=== PATIENT | male | born 1945 | race Two or more races ===

== ENCOUNTER 2018-05-13 13:00 | Emergency (ER) | payer OTHER ==
[~2018-05-13] VITALS: Ht 162.6 cm; Wt 64.0 kg
[2018-05-13 13:15] VITALS: BP 122/65
[2018-05-13 14:19] LABS: Basophils # (auto) 0.1 uL; Basophils % (auto) 0.9 % (0.0-2.0); Eosinophils # (auto) 0.1 uL; Eosinophils % (auto) 0.7 % (0.0-7.0); Hematocrit 44.7 % (41.0-53.0); Hemoglobin 15.3 g/dL (13.5-17.5); Lymphocytes % (auto) 21.8 % (10.0-50.0); Mean Corpuscular Hemoglobin 30.2 pg (28.0-32.0); Mean Corpuscular Hgb Conc. 34.3 g/dL (32.0-36.0); Mean Corpuscular Volume 88.3 fL (80.0-100.0); Monocytes # (auto) 0.5 uL; Monocytes % (auto) 5.7 % (0.0-12.0); Neutrophils # (auto) 6.6 uL; Neutrophils % (auto) 70.9 % (37.0-80.0); Nucleated Red Blood Cells % 0.1 %; Platelet Count (auto) 274 10^3/uL (140-450); Red Blood Cells 5.06 10^6/uL (4.5-5.90); Red Cell Distribution Width 12.7 % (11.8-14.3); White Blood Cell 9.3 10^3/uL (4.4-10.8)
[2018-05-13 14:32] LABS: Alanine Aminotransferase 29 U/L (16-61); Albumin 3.8 g/dL (3.4-5.0); Anion Gap 11 (5-15); Aspartate Aminotransferase 14 U/L (15-37); BUN/Creatinine Ratio 19.8; Blood Urea Nitrogen 23 mg/dL (7-18); Calcium 8.4 mg/dL (8.5-10.1); Carbon Dioxide 25 mmol/L (21-32); Chloride 102 mmol/L (98-107); GFR African American 80 mL/min; GFR Non-African American 66 mL/min; Glucose 282 mg/dL (74-106); Potassium 4.8 mmol/L (3.5-5.1); Sodium 138 mmol/L (136-145)
[2018-05-13 14:37] LABS: Alkaline Phosphatase 92 U/L (45-117); Bilirubin, Total 0.3 mg/dL (0.2-1.0); Total Protein 7.5 g/dL (6.4-8.2)
== END 2018-05-13 16:05 | disposition left against medical advice (07) ==
LOC: ER 13:04
DX: R42 Dizziness and giddiness (principal); I10 Essential (primary) hypertension; E11.9 Type 2 diabetes mellitus without complications; E78.5 Hyperlipidemia, unspecified
CPT/HCPCS: 36415; 71046; 80053; 84484; 85025; 93005

== ENCOUNTER 2019-05-15 16:26 | Emergency (ER) | payer OTHER ==
[~2019-05-15] VITALS: Ht 162.6 cm; Wt 65.3 kg
[2019-05-15] MEDS ORDERED: SODIUM CHLORIDE 0.9% 1,000 ML IVB ONE (16:50)
[2019-05-15] MEDS ORDERED: KETOROLAC TROMETH 15 mg/ml 1ML VL IV ONE (17:00)
[2019-05-15] MEDS ORDERED: ONDANSETRON HCL 4 MG/2 ML VIAL IV ONE (17:00)
[2019-05-15] MEDS ORDERED: MORPHINE SULFATE 4 MG/ML SYR/VIAL IV ONE (17:00)
[2019-05-15 17:12] LABS: Urine Bacteria NONE SEEN /hpf (None Seen); Urine Blood Negative /uL (Negative); Urine Mucus FEW (None Seen); Urine Specific Gravity 1.035 (1.001-1.035); Urine WBC 1 /hpf (0 - 3)
[2019-05-15 17:41] LABS: Basophils # (auto) 0.1 uL; Basophils % (auto) 1.1 % (0.0-2.0); Eosinophils # (auto) 0.2 uL; Eosinophils % (auto) 2.8 % (0.0-7.0); Hematocrit 38.7 % (41.0-53.0); Hemoglobin 13.3 g/dL (13.5-17.5); Lymphocytes # (auto) 1.9 uL; Lymphocytes % (auto) 23.8 % (10.0-50.0); Mean Corpuscular Hemoglobin 31.3 pg (28.0-32.0); Mean Corpuscular Hgb Conc. 34.2 g/dL (32.0-36.0); Mean Corpuscular Volume 91.4 fL (80.0-100.0); Monocytes # (auto) 0.7 uL; Neutrophils # (auto) 5.1 uL; Neutrophils % (auto) 63.3 % (37.0-80.0); Nucleated Red Blood Cells % 0.1 %; Platelet Count (auto) 246 10^3/uL (140-450); Red Blood Cells 4.24 10^6/uL (4.5-5.90); Red Cell Distribution Width 13.2 % (11.8-14.3)
[2019-05-15 17:54] LABS: Albumin 3.4 g/dL (3.4-5.0); Calcium 8.6 mg/dL (8.5-10.1); Potassium 4.6 mmol/L (3.5-5.1)
[2019-05-15 17:57] LABS: BUN/Creatinine Ratio 17.7; Bilirubin, Total 0.2 mg/dL (0.2-1.0); Total Protein 6.7 g/dL (6.4-8.2)
[2019-05-15 18:00] VITALS: BP 129/48
== END 2019-05-15 18:17 | disposition home or self-care (01) ==
LOC: ER 16:37
DX: N20.0 Calculus of kidney (principal); E11.9 Type 2 diabetes mellitus without complications; E78.5 Hyperlipidemia, unspecified; I10 Essential (primary) hypertension; F17.210 Nicotine dependence, cigarettes, uncomplicated
CPT/HCPCS: 36415; 74176; 80053; 81001; 85025; 94761; 96374; 96375; 99284; J1885; J2270; J2405; J7030

== ENCOUNTER 2019-07-02 14:29 | Emergency (ER) | payer OTHER ==
[~2019-07-02] VITALS: Ht 162.6 cm; Wt 65.3 kg
[2019-07-02 15:05] VITALS: BP 152/54
== END 2019-07-02 16:26 | disposition home or self-care (01) ==
LOC: ER 14:38
DX: S80.211A Abrasion, right knee, initial encounter (principal); E11.9 Type 2 diabetes mellitus without complications; E78.00 Pure hypercholesterolemia, unspecified; I10 Essential (primary) hypertension; F17.210 Nicotine dependence, cigarettes, uncomplicated; V89.2XXA Person injured in unspecified motor-vehicle accident, traffic, initial encounter; Y93.89 Activity, other specified; Y92.89 Other specified places as the place of occurrence of the external cause; Y99.8 Other external cause status

== ENCOUNTER 2021-09-21 16:42 | Inpatient (IN) | payer OTHER ==
[~2021-09-21] VITALS: Ht 162.6 cm; Wt 65.8 kg
[2021-09-21 19:11] LABS: Basophils # (auto) 0.1 10 ^3/uL (0-0.2); Basophils % (auto) 0.8 % (0.0-2.0); Eosinophils # (auto) 0.1 10 ^3/uL (0-0.8); Eosinophils % (auto) 0.9 % (0.0-7.0); Hematocrit 41.5 % (41.0-53.0); Hemoglobin 13.9 g/dL (13.5-17.5); Lymphocytes # (auto) 1.7 10 ^3/uL (0.4-5.4); Lymphocytes % (auto) 15.9 % (10.0-50.0); Mean Corpuscular Hemoglobin 30.7 pg (28.0-32.0); Mean Corpuscular Hgb Conc. 33.6 g/dL (32.0-36.0); Mean Corpuscular Volume 91.4 fL (80.0-100.0); Monocytes # (auto) 0.7 10 ^3/uL (0-1.3); Monocytes % (auto) 6.3 % (0.0-12.0); Neutrophils % (auto) 76.1 % (37.0-80.0); Nucleated Red Blood Cells % 0.1 %; Red Blood Cells 4.54 10^6/uL (4.5-5.90); White Blood Cell 10.6 10^3/uL (4.4-10.8)
[2021-09-21 19:22] LABS: Albumin 3.8 g/dL (3.4-5.0); BUN/Creatinine Ratio 14.4; Calcium 9.4 mg/dL (8.5-10.1); Potassium 4.2 mmol/L (3.5-5.1)
[2021-09-21 19:25] LABS: INR 1.06 (0.9-1.15); Partial Thromboplastin Time 28.6 sec (23.6-33.0)
[2021-09-21 19:30] LABS: Bilirubin, Total 0.2 mg/dL (0.2-1.0); Magnesium 1.8 mg/dL (1.6-2.6)
[2021-09-21] MEDS ORDERED: LORazepam 2MG/ML-1ML VIAL IV PRN (20:15)
[2021-09-21] MEDS ORDERED: LABETALOL HCL 5 MG/ML 4ML SYRINGE IV PRN (20:15)
[2021-09-21] MEDS ORDERED: ACETAMINOPHEN 650 mg PER 20.3 mL UD GT PRN (20:15)
[2021-09-21] MEDS ORDERED: CLOPIDOGREL BISULFATE 75 MG TAB PO ONE (20:15)
[2021-09-21 20:51] LABS: Cholesterol 138 mg/dL (< 200); HDL Cholesterol 39 mg/dL (40-59); LDL Cholesterol 76 mg/dL (< 100); Triglycerides 181 mg/dL (< 150)
[2021-09-22 00:11] LABS: Alcohol, Urine < 3.0 mg/dL (0-10); Amphetamine Screen, Urine NEGATIVE (NEGATIVE); Barbiturate Scree,Urine NEGATIVE (NEGATIVE); Benzodiazephine Screen, Urine NEGATIVE (NEGATIVE); Cannabinoid Screen, Urine NEGATIVE (NEGATIVE); Cocaine Screen, Urine NEGATIVE (NEGATIVE); Opiate Scree,Urine NEGATIVE (NEGATIVE); Phencyclidine Screen, Urine NEGATIVE (NEGATIVE)
[2021-09-22 00:49] LABS: Urine Bacteria NONE SEEN /hpf (None Seen); Urine Blood Negative /uL (Negative); Urine Specific Gravity 1.013 (1.001-1.035); Urine WBC <1 /hpf (0 - 3)
[2021-09-22] MEDS ORDERED: DEXTROSE (50%) 50ML SYRG IV PRN (02:00)
[2021-09-22] MEDS ORDERED: DOCUSATE SOD 100 MG CAP PO PRN (02:00)
[2021-09-22] MEDS ORDERED: NITROGLYCERIN 0.4 MG SL TAB SL PRN (02:00)
[2021-09-22] MEDS ORDERED: MORPHINE SULFATE INJECTION 2 MG/ML SYRG IV PRN (02:00)
[2021-09-22] MEDS ORDERED: ACETAMINOPHEN 325 MG TAB PO PRN (02:00)
[2021-09-22] MEDS ORDERED: HYDROcodone-ACET 5/325MG TAB PO PRN (02:00)
[2021-09-22] MEDS ORDERED: ONDANSETRON HCL 4 MG/2 ML VIAL IV PRN (02:00)
[2021-09-22 06:20] LABS: Basophils # (auto) 0.1 10 ^3/uL (0-0.2); Basophils % (auto) 1.2 % (0.0-2.0); Eosinophils # (auto) 0.2 10 ^3/uL (0-0.8); Eosinophils % (auto) 2.9 % (0.0-7.0); Hematocrit 39.3 % (41.0-53.0); Hemoglobin 13.8 g/dL (13.5-17.5); Lymphocytes # (auto) 1.5 10 ^3/uL (0.4-5.4); Lymphocytes % (auto) 21.6 % (10.0-50.0); Mean Corpuscular Hemoglobin 31.8 pg (28.0-32.0); Mean Corpuscular Hgb Conc. 35.1 g/dL (32.0-36.0); Mean Corpuscular Volume 90.6 fL (80.0-100.0); Monocytes # (auto) 0.6 10 ^3/uL (0-1.3); Monocytes % (auto) 8.4 % (0.0-12.0); Neutrophils # (auto) 4.6 10 ^3/uL (1.6-8.6); Neutrophils % (auto) 65.9 % (37.0-80.0); Nucleated Red Blood Cells % 0.1 %; Red Blood Cells 4.33 10^6/uL (4.5-5.90); Red Cell Distribution Width 13.1 % (11.8-14.3); White Blood Cell 6.9 10^3/uL (4.4-10.8)
[2021-09-22 06:23] LABS: Potassium 3.9 mmol/L (3.5-5.1)
[2021-09-22 06:48] LABS: Albumin 3.2 g/dL (3.4-5.0); BUN/Creatinine Ratio 13.2; Bilirubin, Total 0.2 mg/dL (0.2-1.0); Calcium 8.6 mg/dL (8.5-10.1); Total Protein 6.6 g/dL (6.4-8.2)
[2021-09-22] MEDS: ACCU-CHEK COMFORT CURVE STRIP VI SCH ×4 (07:07→22:35)
[2021-09-22] MEDS: InsuLIN REG 1unit/0.01ml Soln (100units/ml) SC SCH ×4 (07:08→22:46)
[2021-09-22] MEDS: ZINC SULFATE 220mg CAP or TAB PO SCH (10:23)
[2021-09-22] MEDS: ATORVASTATIN 20 MG TAB PO SCH (10:23)
[2021-09-22] MEDS: ASPirin 81 mg TAB PO SCH (10:23)
[2021-09-22] MEDS: FAMOTIDINE (10MG/ML) 2ML VL IV SCH ×2 (12:38→22:34)
[2021-09-22] MEDS ORDERED: IOHEXOL 350 MG/ML 100ML IJ ONE (15:33)
[2021-09-22] MEDS: SODIUM CHLORIDE 0.9% 1,000 ML IV SCH (18:09)
[2021-09-22] MEDS: LABETALOL HCL 5 MG/ML 4ML SYRINGE IV PRN (19:59)
[2021-09-22 20:56] VITALS: BP 158/86
[2021-09-23 05:00] VITALS: BP 156/74
[2021-09-23 06:25] LABS: Basophils # (auto) 0.1 10 ^3/uL (0-0.2); Basophils % (auto) 1.1 % (0.0-2.0); Eosinophils # (auto) 0.2 10 ^3/uL (0-0.8); Eosinophils % (auto) 2.1 % (0.0-7.0); Hematocrit 41.2 % (41.0-53.0); Lymphocytes # (auto) 1.9 10 ^3/uL (0.4-5.4); Lymphocytes % (auto) 25.1 % (10.0-50.0); Mean Corpuscular Hemoglobin 30.8 pg (28.0-32.0); Mean Corpuscular Hgb Conc. 33.9 g/dL (32.0-36.0); Mean Corpuscular Volume 90.9 fL (80.0-100.0); Monocytes # (auto) 0.8 10 ^3/uL (0-1.3); Neutrophils # (auto) 4.6 10 ^3/uL (1.6-8.6); Neutrophils % (auto) 61.7 % (37.0-80.0); Nucleated Red Blood Cells % 0.1 %; Red Blood Cells 4.53 10^6/uL (4.5-5.90); White Blood Cell 7.5 10^3/uL (4.4-10.8)
[2021-09-23] MEDS: SODIUM CHLORIDE 0.9% 1,000 ML IV SCH ×2 (06:30→12:14)
[2021-09-23] MEDS: ACCU-CHEK COMFORT CURVE STRIP VI SCH ×4 (06:30→22:00)
[2021-09-23] MEDS: InsuLIN REG 1unit/0.01ml Soln (100units/ml) SC SCH ×4 (06:31→22:00)
[2021-09-23 06:40] LABS: Calcium 8.8 mg/dL (8.5-10.1)
[2021-09-23 06:46] LABS: BUN/Creatinine Ratio 16.5; Bilirubin, Total 0.3 mg/dL (0.2-1.0)
[2021-09-23] MEDS: FAMOTIDINE (10MG/ML) 2ML VL IV SCH ×2 (08:49→22:00)
[2021-09-23] MEDS: LABETALOL HCL 5 MG/ML 4ML SYRINGE IV PRN ×3 (08:49→14:30)
[2021-09-23] MEDS: ATORVASTATIN 20 MG TAB PO SCH (08:50)
[2021-09-23] MEDS: ASPirin 81 mg TAB PO SCH (08:50)
[2021-09-23] MEDS: ZINC SULFATE 220mg CAP or TAB PO SCH (08:51)
[2021-09-23 09:00] VITALS: BP 196/78
[2021-09-23 13:00] VITALS: BP 182/58
[2021-09-23 17:00] VITALS: BP 140/63
[2021-09-23] MEDS ORDERED: LISINOPRIL 10 MG TAB PO ONE (18:45)
[2021-09-23 23:24] VITALS: BP 135/72
[2021-09-24] MEDS ORDERED: ATOR20TA50 PO (02:06)
[2021-09-24] MEDS ORDERED: TRAZ-181 PO ×2 (02:06→11:11)
[2021-09-24] MEDS ORDERED: FLUO-126 PO (02:06)
[2021-09-24] MEDS ORDERED: LISI20TA28 PO ×2 (02:06→11:09)
[2021-09-24] MEDS ORDERED: AMLO-489 PO (02:06)
[2021-09-24] MEDS ORDERED: GLIP10TA9 PO ×2 (02:06→11:08)
[2021-09-24] MEDS ORDERED: METF-371 PO ×2 (02:06→11:10)
[2021-09-24] MEDS: LABETALOL HCL 5 MG/ML 4ML SYRINGE IV PRN ×3 (04:25→15:10)
[2021-09-24 05:22] VITALS: BP 187/61
[2021-09-24] MEDS: ACCU-CHEK COMFORT CURVE STRIP VI SCH ×3 (06:57→17:07)
[2021-09-24] MEDS: InsuLIN REG 1unit/0.01ml Soln (100units/ml) SC SCH ×3 (06:58→17:37)
[2021-09-24 08:44] VITALS: BP 174/73
[2021-09-24] MEDS: ASPirin 81 mg TAB PO SCH (09:01)
[2021-09-24] MEDS: FAMOTIDINE (10MG/ML) 2ML VL IV SCH (09:01)
[2021-09-24] MEDS: ZINC SULFATE 220mg CAP or TAB PO SCH (09:02)
[2021-09-24] MEDS: ATORVASTATIN 20 MG TAB PO SCH (09:02)
[2021-09-24] MEDS ORDERED: LISINOPRIL 10 MG TAB PO SCH (10:00)
[2021-09-24] MEDS ORDERED: AML5T PO (11:07)
[2021-09-24] MEDS ORDERED: TAMS0.4C36 PO (11:10)
[2021-09-24] MEDS ORDERED: amLODIPine BESYLATE 5 MG TAB PO ONE (11:15)
[2021-09-24 15:16] VITALS: BP 159/81
[2021-09-24 16:59] VITALS: BP 159/81
== END 2021-09-24 19:48 | disposition home or self-care (01) | DRG 65 ==
LOC: ER 16:42 → TELE 09-22 01:59 → TELE-WESTW 09-22 21:14 → WEST WING 09-24 14:07
PROVIDERS: ADMIT Nurse Practitioner Family; ATTEND Internal Medicine Geriatric Medicine
DX: I63.9 Cerebral infarction, unspecified (principal); G81.91 Hemiplegia, unspecified affecting right dominant side; Z20.822 Contact with and (suspected) exposure to COVID-19; R29.810 Facial weakness; E11.65 Type 2 diabetes mellitus with hyperglycemia; E78.5 Hyperlipidemia, unspecified; F17.210 Nicotine dependence, cigarettes, uncomplicated; I10 Essential (primary) hypertension; J32.0 Chronic maxillary sinusitis; N40.0 Benign prostatic hyperplasia without lower urinary tract symptoms; F32.A Depression, unspecified; R47.81 Slurred speech; Z79.02 Long term (current) use of antithrombotics/antiplatelets; Z79.82 Long term (current) use of aspirin; Z79.899 Other long term (current) drug therapy; Z82.3 Family history of stroke; Z87.442 Personal history of urinary calculi
CPT/HCPCS: 36415; 70450; 70496; 70498; 70551; 71046; 80053; 80061; 80307; 81001; 82962; 83036; 83735; 85025; 85610; 85730; 87426; 92523; 93005; 93306; 93886; 97116; 97163; 97530; 99291; G0378; J1815; J3490

== ENCOUNTER 2022-10-10 13:19 | Emergency (ER) | payer OTHER ==
[~2022-10-10] VITALS: Ht 175.3 cm; Wt 64.9 kg
[~2022-10-10 13:19] MED LIST: AML5T PO; ATOR20TA50 PO; FLUO-126 PO; GLIP10TA9 PO; LISI20TA28 PO; METF-371 PO; TAMS0.4C36 PO; TRAZ-181 PO
[2022-10-10 13:37] VITALS: BP 140/61
[2022-10-10 13:58] LABS: Urine Bacteria NONE SEEN /hpf (None Seen); Urine Blood Negative /uL (Negative); Urine Hyaline Cast FEW /lpf (0 - 2); Urine Specific Gravity 1.023 (1.001-1.035); Urine WBC 1 /hpf (0 - 3)
[2022-10-10] MEDS ORDERED: KETOROLAC TROMETH 30 MG/ML 1ML VIAL IV ONE (14:00)
[2022-10-10] MEDS ORDERED: SODIUM CHLORIDE 0.9% 1,000 ML IVB ONE (14:00)
[2022-10-10 14:24] LABS: Basophils # (auto) 0.1 10 ^3/uL (0-0.2); Basophils % (auto) 0.8 % (0.0-2.0); Eosinophils # (auto) 0.1 10 ^3/uL (0-0.8); Hematocrit 37.6 % (41.0-53.0); Hemoglobin 12.6 g/dL (13.5-17.5); Lymphocytes # (auto) 1.8 10 ^3/uL (0.4-5.4); Lymphocytes % (auto) 21.1 % (10.0-50.0); Mean Corpuscular Hemoglobin 30.5 pg (28.0-32.0); Mean Corpuscular Hgb Conc. 33.4 g/dL (32.0-36.0); Mean Corpuscular Volume 91.3 fL (80.0-100.0); Monocytes # (auto) 0.5 10 ^3/uL (0-1.3); Monocytes % (auto) 6.2 % (0.0-12.0); Neutrophils # (auto) 6.1 10 ^3/uL (1.6-8.6); Neutrophils % (auto) 70.9 % (37.0-80.0); Red Blood Cells 4.12 10^6/uL (4.5-5.90); Red Cell Distribution Width 13.2 % (11.8-14.3); White Blood Cell 8.6 10^3/uL (4.4-10.8)
[2022-10-10 14:35] LABS: Albumin 3.9 g/dL (3.4-5.0); Calcium 9.4 mg/dL (8.5-10.1); Potassium 4.5 mmol/L (3.5-5.1)
[2022-10-10 14:41] LABS: BUN/Creatinine Ratio 21.3; Bilirubin, Total 0.4 mg/dL (0.2-1.0); Total Protein 7.1 g/dL (6.4-8.2)
[2022-10-10 15:09] LABS: Amylase 74 U/L (25-115); Lipase 197 U/L (73-393)
== END 2022-10-10 20:25 | disposition home or self-care (01) ==
LOC: ER 13:19
DX: R10.12 Left upper quadrant pain (principal); I10 Essential (primary) hypertension; E11.9 Type 2 diabetes mellitus without complications; E78.5 Hyperlipidemia, unspecified; F17.210 Nicotine dependence, cigarettes, uncomplicated; Z79.899 Other long term (current) drug therapy
CPT/HCPCS: 36415; 74176; 80053; 81001; 82150; 83690; 85025

== ENCOUNTER 2025-08-06 10:18 | Inpatient (IN) | payer OTHER, MEDICAID ==
[~2025-08-06] VITALS: Ht 162.6 cm; Wt 58.4 kg
[~2025-08-06 10:18] MED LIST changes: -LISI20TA28 PO; +LISI20TA56 PO; -TAMS0.4C36 PO; +TAMS0.4C39 PO
--- NOTE | 2025-08-06 11:14 | ED.PDOC ---
General HPI Comments This is a 80 year old male presenting to the ED with chief complaint of flank pain. Patient reports that he has been experiencing 6/10 right sided flank pain with associated nausea and RLQ abdominal pain for the past 3 days. Patient relays that he has history of kidney stones to the right side. Patient denies any dysuria, hematuria, fever, chills, vomiting, or diarrhea. Chief Complaint: Back Pain Time Seen by MD: 11:12 Primary Care Provider: UNKNOWN Reviewed notes: Nurses Notes, Medications, Allergies Allergies: Coded Allergies: NO KNOWN ALLERGIES (Unverified , 08/13/15) Home Meds Reported Medications Lisinopril (Lisinopril) 40 Mg Tab, 1 TAB PO DAILY 08/06/25 Trazodone HCl (Trazodone Hydrochloride) 50 Mg Tab, 50 MG PO HS, TAB 09/24/21 Tamsulosin Hcl (Tamsulosin Hcl) 0.4 Mg Cap, 1 CAP PO DAILY, #30 CAP 5 Refills 09/24/21 Metformin Hydrochloride (Metformin Hcl) 850 Mg Tab, 1 TAB PO BID, #60 TAB 5 Refills 09/24/21 Lisinopril (Lisinopril) 20 Mg Tab, 10 MG PO DAILY, TAB 09/24/21 Glipizide (Glipizide) 10 Mg Tab, 1 TAB PO BID, #60 TAB 5 Refills 09/24/21 Amlodipine Besylate (NORVASC TABLET) 5 Mg Tb, 1 TAB PO DAILY, #30 TAB 5 Refills 09/24/21 Fluoxetine Hcl (Fluoxetine Hcl) 10 Mg Cap, 40 MG PO DAILY for 30 Days, MG 09/24/21 Atorvastatin Calcium (ATORVASTATIN CALCIUM) 20 Mg Tab, 20 MG PO HS, TAB 09/24/21 Information Source: Patient, Spouse Mode of Arrival: Ambulatory Severity: Moderate Timing: Days Duration: Since onset Prehospital treatment: None Onset: Spontaneous History of: Kidney stone Location: (R) Flank Modifying factors: None associated signs and symptoms: Abdominal Pain, Nausea, Flank Pain Past Medical History PAST MEDICAL HISTORY: CVA, Depression, DM, High Lipids, HTN, Kidney Stones Surgical History: Hernia Repair, Pacemaker Surgical History (Other): Eye surgery Family History Family History: Reviewed,noncontributory to illness, Family hx of stroke Social History Smoker: Cigarettes Alcohol: Denies ETOH Use Drugs: Denies Drug Use Lives In: Home Constitutional: denies: chills, diaphoresis, fatigue, fever, malaise, sweats, weakness, others EENTM: denies: blurred vision, double vision, ear bleeding, ear discharge, ear drainage, ear pain, ear ringing, eye pain, eye redness, hearing loss, mouth pain, mouth swelling, nasal discharge, nose bleeding, nose congestion, nose pain, photophobia, tearing, throat pain, throat swelling, voice changes, others Respiratory: denies: cough, hemoptysis, orthopnea, SOB at rest, shortness of b reath, SOB with excertion, stridor, wheezing, others Cardiovascular: denies: chest pain, dizzy spells, diaphoresis, Dyspnea on exertion, edema, irregular heart beat, left arm pain, lightheadedness, palpitations, PND, syncope, others Gastrointestinal: reports: abdominal pain, nausea; denies: abdomen distended, blood streaked bowels, constipated, diarrhea, dysphagia, difficulty swallowing, hematemesis, melena, poor appetite, poor fluid intake, rectal bleeding, rectal pain, vomiting, others Genitourinary: reports: flank pain; denies: burning, dysuria, frequency, hematuria, incontinence, penile discharge, penile sore, pain, testicle pain, testicle swelling, urgency, others Neurological: denies: dizziness, fainting, headache, left sided numbness, left sided weakness, numbness, paresthesia, pre-existing deficit, right sided numbness, right sided weakness, seizure, speech problems, tingling, tremors, weakness, others Musculoskeletal: denies: back pain, gout, joint pain, joint swelling, muscle pain, muscle stiffness, neck pain, others Integumetry: denies: bruises, change in color, change in hair/nails, dryness, laceration, lesions, lumps, rash, wounds, others Allergic/Immunocompromised: denies: Difficulty Healing, Frequent Infections, Hives, Itching, others Hematologic/Lymphatic: denies: anemia, blood clots, easy bleeding, easy bruising, swollen glands, others Endocrine: denies: excessive hunger, excessive sweating, excessive thirst, excessive urination, flushing, intolerance to cold, intolerance to heat, unexplained weight gain, unexplained weight loss, others Psychiatric: denies: anxiety, bipolar disorder, depression, hopeless, panic disorder, schizophrenia, sleepless, suicidal, others All Other Systems: Reviewed and Negative Physical Exam General Appearance: Moderate Distress HEENT: Normal ENT Inspection, Pharynx Normal, TMs Normal Neck: Full Range of Motion, Non-Tender, Normal, Normal Inspection Respiratory: Chest Non-Tender, Lungs Clear, No Accessory Muscle Use, No Respiratory Distress, Normal Breath Sounds Cardiovascular: No Edema, No JVD, No Murmur, No Gallop, Normal Peripheral Pulses, Regular Rate/Rhythm Breast Exam: Deferred Gastrointestinal: No Organomegaly, Non Tender, No Pulsatile Mass, Normal Bowel Sounds, Soft Genitalia: Deferred Pelvic: Deferred Rectal: Deferred Extremities: No calf tenderness, Normal capillary refill, No pedal edema Musculoskeletal : Location: Right Extremity Location: Back Apperance: Tenderness: Moderate Neurologic: Alert, k 9 handler/ deputy II-XII nml as Tested, No Motor Deficits, Normal Affect, Normal Mood, No Sensory Deficits Cerebellar Function: Normal Reflexes: Normal Skin: Dry, Normal Color, Warm Lymphatic: No Adenopathy Was a procedure done? Was a procedure done?: No Differential Diagnosis Kidney stone (Female): N/A Kidney stone (Male): Urinary obstruction, Urolithiasis, Urinary tract infection X-Ray, Labs, Meds, VS Vital Signs Date Time Temp Pulse Resp B/P (MAP) Pulse Ox O2 Delivery O2 Flow Rate FiO2 08/06/25 13:00 61 20 143/57 (85) 97 08/06/25 11:45 98.4 64 20 143/55 (84) 97 98.4 08/06/25 11:45 64 20 97 Room Air* 0 21 08/06/25 10:27 98.4 78 18 142/50 98 98.4 Lab Test 08/06/25 11:12 08/06/25 10:17 08/06/25 00:00 Range/Units Urine Color Yellow Yellow Urine Clarity Clear Clear Urine pH 5.5 5.0-9.0 Urine Specific [place] 1.023 1.001-1.035 Urine Protein 2+ H Negative Urine Ketones Negative Negative Urine Blood Negative Negative /uL Urine Nitrite Negative Negative Urine Bilirubin Negative Negative Urine Urobilinogen 2 H Negative mg/dL Urine Leukocyte Esterase 1+ Negative /uL Urine RBC 3 0 - 3 /hpf Urine Microscopic WBC 12 H 0-3 /HPF Urine Squamous Epithelial Cells Few <5 /hpf Urine Bacteria None seen None Seen /hpf Urine Yeast (Budding) Occasional None Seen /hpf Urine Glucose Normal Normal mg/dL White Blood Count 9.4 4.4-10.8 10^3/uL Red Blood Count 3.30 L 4.5-5.90 10^6/uL Hemoglobin 9.8 L 13.5-17.5 g/dL Hematocrit 29.2 L 41.0-53.0 % Mean Corpuscular Volume 88.3 80.0-100.0 fL Mean Corpuscular Hemoglobin 29.7 28.0-32.0 pg Mean Corpuscular Hemoglobin Concent 33.6 32.0-36.0 g/dL Red Cell Distribution Width 13.6 11.8-14.3 % Platelet Count 355 140-450 10^3/uL Mean Platelet Volume 6.9 6.9-10.8 fL Neutrophils (%) (Auto) 80.6 H 37.0-80.0 % Lymphocytes (%) (Auto) 11.9 10.0-50.0 % Monocytes (%) (Auto) 6.2 0.0-12.0 % Eosinophils (%) (Auto) 0.8 0.0-7.0 % Basophils (%) (Auto) 0.5 0.0-2.0 % Neutrophils # (Auto) 7.6 1.6-8.6 10 ^3/uL Lymphocytes # (Auto) 1.1 0.4-5.4 10 ^3/uL Monocytes # (Auto) 0.6 0-1.3 10 ^3/uL Eosinophils # (Auto) 0.1 0-0.8 10 ^3/uL Basophils # (Auto) 0 0-0.2 10 ^3/uL Nucleated Red Blood Cells 0.0 % Sodium Level 142 136-145 mmol/L Potassium Level 4.3 3.5-5.1 mmol/L Chloride Level 109 H 98-107 mmol/L Carbon Dioxide Level 23 20-31 mmol/L Anion Gap 10 5-15 Blood Urea Nitrogen 34 H 9-23 mg/dL Creatinine 2.11 H 0.700-1.30 mg/dL Glomerular Filtration Rate Calc 31 >90 mL/min BUN/Creatinine Ratio 16.1 10.0-20.0 Serum Glucose 156 H 74-106 mg/dL Calcium Level 8.7 8.7-10.4 mg/dL Thyroid Stimulating Hormone (TSH) 1.65 0.55-4.78 uIU/mL Influenza Type A Antigen Pending Influenza Type B Antigen Pending SARS-CoV-2 Antigen (Rapid) Pending Current Medications Medications (Trade) Dose Ordered Sig/Letty Route Start Time Stop Time Status Last Admin Sodium Chloride 500 ml @ 500 mls/hr Q1H ONCE IVB 08/06/25 11:00 08/06/25 11:59 DC 08/06/25 12:11 CT Abd/Pel indicates: 1. Motion limited study. 2. Moderate right hydronephrosis with obstructing 8 mm calculus in the distal right ureter. 3. No other renal or ureteral calculi visualized. 4. Nonspecific nondilated fluid-filled small bowel loops. Findings may be seen with ileus or enteritis in the appropriate clinical setting. No small bowel obstruction. 5. Enlarged prostate. 6. Mild circumferential thickening of the bladder wall is nonspecific. Correlate clinically to exclude cystitis. 7. Additional findings as described above. The patient's CBC shows anemia with a hemoglobin of 9.8 and hematocrit 29.2 The chemistry panel shows a BUN of 34 and a creatinine of 2.11 The patient has a urine test that is positive for UTI The patient is being admitted at this time. We will continue to manage the patient's pain secondary to the 8 mm calculus in the ureter Images Reviewed?: Images reviewed and evaluated by me Time of 1ST Reevaluation: 16:10 Reevaluation 1ST: Unchanged Patient Education/Counseling: Diagnosis, Treatment Family Education/Counseling: Diagnosis, Treatment SEPSIS Sepsis Screen Date sepsis recognized/suspect: Aug 06, 2025 Time Sepsis recognized/suspect: 103 Recent Procedure: No On Antibiotic Therapy: No Respiratory Rate >20: No Heart Rate >90: No Temp<36 C (96.8 F) or >38.3 C: No SBP <90 or MAP <65 mmHG: No New Acute Mental Status Change: No Is the patient on CPAP, BIPAP,: No Physician Orders Ct Ab Pel Wo Con-No Oral Or Iv (08/06/25 10:50) Heplock Iv (08/06/25 10:50) Vital Signs Date Time Temp Pulse Resp B/P (MAP) Pulse Ox O2 Delivery O2 Flow Rate FiO2 08/06/25 13:00 61 20 143/57 (85) 97 08/06/25 11:45 98.4 64 20 143/55 (84) 97 98.4 08/06/25 11:45 64 20 97 Room Air* 0 21 08/06/25 10:27 98.4 78 18 142/50 98 98.4 Laboratory Tests Test 08/06/25 10:17 White Blood Count 9.4 10^3/uL (4.4-10.8) Medications Medications Dose Ordered Sig/Letty Route Start Time Stop Time Status Last Admin Dose Admin Sodium Chloride 500 ml @ 500 mls/hr Q1H ONCE IVB 08/06/25 11:00 08/06/25 11:59 DC 08/06/25 12:11 Departure 1 Departure Time of Disposition: 16:11 Impression: Primary Impression: Right flank pain Additional Impressions: Ureterolithiasis UTI (urinary tract infection) Qualified Codes: N30.00 - Acute cystitis without hematuria Disposition: ADMITTED INPATIENT Admit to: Med Surg Condition: Fair Critical Care Note Critical Care Time?: No Stability Stability form required: Yes Unstable for transfer: ED Physician Assesment (Clinical assesment) Heart Score Heart Score: Heart Score Response (Comments) Value History N/A 0 EKG N/A 0 Age N/A 0 Risk Factors N/A 0 Troponin N/A 0 Total 0 I personally scribed for DEUCE FULLER MD ([email or web address]) on 08/06/25 at 11:14. Electronically submitted by Sarthak Siegel ([email or web address]). I personally scribed for DEUCE FULLER MD ([email or web address]) on 08/06/25 at 12:10. Electronically submitted by Sarthak Siegel ([email or web address]). DEUCE FULLER MD Aug 06, 2025 11:14
--- NOTE | 2025-08-06 11:32 | DVH ---
CLINICAL INFORMATION: 80 years old, Male; right flank. TECHNIQUE: Axial CT images of the abdomen and pelvis were obtained without IV contrast. Coronal and s agittal reformatted images were obtained, reviewed, and stored. Evaluation of the parenchymal organs is limited without IV contrast. Evaluation of the bowel and mesentery is limited without oral contras t. All CT scans at this medical facility are performed using dose modulation techniques as appropriat e to a performed exam including the following: Automated exposure control was utilized; adjustment of the MA and/or KV according to patient size; and use of iterative reconstruction technique. CTDIvol = 6.35 mGy DLP = 313.29 mGy-cm COMPARISON: CT CT AB PEL WO CON-NO ORAL OR IV on DOS: 08/05/25, ABPL on DOS: 10/10/22 FINDINGS: Motion limited study. Lung bases: Lung bases are clear. Liver: Grossly unremarkable given the limitations of the examination. Biliary: Gallbladder is not visualized. No biliary ductal dilatation. Spleen: Unremarkable. Pancreas: Limited evaluation of the pancreas due to motion artifact. Adrenal glands: Adrenal glands appear thickened, although poorly evaluated due to motion artifact. Kidneys: Moderate right hydronephrosis with obstructing calculus in the distal right ureter measuring up to 8 mm in greatest dimension approximately 3.3 cm proximal to the ureterovesical junction. No ot her renal or ureteral calculi visualized. Aorta/Vascular: Dense atherosclerotic calcification. No abdominal aortic aneurysm. Retroperitoneum: Grossly unremarkable given the limitations of the examination. Bowel/mesentery: Nonspecific nondilated fluid-filled small bowel loops. No small-bowel obstruction. A ppendix is not visualized. Moderate stool in the colon. Pelvic organs: Enlarged prostate with impression on the bladder base. Bladder: Mild circumferential thickening of the bladder wall. Abdominal wall: Diffuse anasarca. No evidence for hernia. Bones: No acute fracture or suspicious intraosseous lesion. IMPRESSION: 1. Motion limited study. 2. Moderate right hydronephrosis with obstructing 8 mm calculus in the distal right ureter. 3. No other renal or ureteral calculi visualized. 4. Nonspecific nondilated fluid-filled small bowel loops. Findings may be seen with ileus or enteriti s in the appropriate clinical setting. No small bowel obstruction. 5. Enlarged prostate. 6. Mild circumferential thickening of the bladder wall is nonspecific. Correlate clinically to exclu de cystitis. 7. Additional findings as described above.
[2025-08-06 11:37] LABS: Hematocrit 29.2 % (41.0-53.0); Hemoglobin 9.8 g/dL (13.5-17.5); Mean Corpuscular Hemoglobin 29.7 pg (28.0-32.0); Mean Corpuscular Volume 88.3 fL (80.0-100.0); Nucleated Red Blood Cells % 0.0 %
[2025-08-06 11:44] LABS: Potassium 4.3 mmol/L (3.5-5.1); Sodium 142 mmol/L (136-145)
[2025-08-06 11:45] VITALS: PULSE 64; RESP 20; O2SAT 97
[2025-08-06 11:45] LABS: Anion Gap 10 (5-15); Carbon Dioxide 23 mmol/L (20-31)
[2025-08-06 11:47] LABS: Calcium 8.7 mg/dL (8.7-10.4); Chloride 109 mmol/L (98-107)
[2025-08-06 11:50] LABS: BUN/Creatinine Ratio 16.1 (10.0-20.0)
[2025-08-06 11:54] LABS: Blood Urea Nitrogen 34 mg/dL (9-23); Glucose 156 mg/dL (74-106)
[2025-08-06] MEDS: SODIUM CHLORIDE 0.9% 500 ML IVB ONE (12:11)
[2025-08-06 12:29] LABS: Urine Budding Yeast OCCASIONAL /hpf (None Seen); Urine Protein, UAD 2+ (Negative)
[2025-08-06] MEDS ORDERED: ONDANSETRON HCL 4 MG/2 ML VIAL IV PRN (14:30)
[2025-08-06] MEDS ORDERED: MORPHINE SULFATE INJ 2 MG/ml SYRG IV PRN ×2 (14:30)
[2025-08-06] MEDS ORDERED: HYDROcodone-ACET 5/325MG TAB PO PRN (14:30)
[2025-08-06] MEDS ORDERED: NITROGLYCERIN 0.4 MG SL TAB SL PRN (14:30)
--- NOTE | 2025-08-06 15:16 | DVHHPRES ---
History of Present Illness Resident Creating Document: LAURA JOHNSON RESIDENT History of Present Illness Jacob Faith is a 80-year-old male with hypertension, diabetes, dyslipidemia, history of stroke, kidney stones, pacemaker placement presented to the ED with a chief complaint of pain in the back and right flank. The patient states that he has pain in the back radiating to the right flank and right lower abdomen since 3 days. He describes the pain as sharp, constant, 8/10 in intensity. The patient states that when he lies on the right side of his abdomen the pain radiates from the back to the right lower abdomen. He took ibuprofen at home but it only caused little relief in pain. Patient also had nausea since 3 days. He denies any urinary symptoms, vomiting, fever and chills. The patient has history of similar pain in the back 2 years back when he was found to have kidney stone and procedure was done to break them down and remove them. 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 Patient is alert and oriented to time, place person and responding to all questions. Patient complains of right flank pain. Eyes: No Pain, No Vision change, No Conjunctivae inflammation, No Eyelid inflammation, No Redness ENT: No Ear pain, No Ear discharge, No Nose pain, No Nose discharge, No Nose congestion, No Mouth pain, No Mouth swelling, No Throat pain, No Throat swelling Cardiovascular: No Chest Pain, No Palpitations, No Orthopnea, No Paroxysmal No Dyspnea, No Edema, No Lt Headedness Respiratory: No Cough, No Dry, No Shortness of breath, No SOB with exertion, No Wheezing, No Hemoptysis, No Pleuritic Pain, No Sputum Gastrointestinal: Nausea, No Vomiting, No Abdominal Pain, No Diarrhea, No Constipation, No Melena, No Hematochezia Genitourinary: No Dysuria, No Frequency, No Incontinence, No Hematuria, No Retention Gastrointestinal: Nausea Allergies: Coded Allergies: NO KNOWN ALLERGIES (Unverified , 08/13/15) Medications Current Medications Medications Dose Ordered Sig/Letty Route Start Time Stop Time Status Last Admin Dose Admin Sodium Chloride 1,000 ml @ 60 mls/hr [id number] IV 08/06/25 14:30 UNV Acetaminophen/ Hydrocodone Bitart 1 tab Q4HP PRN PO 08/06/25 14:30 UNV Ondansetron HCl 4 mg Q4HP PRN IV 08/06/25 14:30 UNV Enoxaparin Sodium 30 mg DAILY SC 08/07/25 10:00 UNV Morphine Sulfate 2 mg Q4HPRN PRN IV 08/06/25 14:30 UNV Nitroglycerin 0.4 mg Q5MINP PRN SL 08/06/25 14:30 UNV Morphine Sulfate 2 mg Q30M PRN IV 08/06/25 14:30 UNV Ceftriaxone Sodium 50 ml @ 100 mls/hr DAILY@09 IV 08/07/25 09:00 UNV Tamsulosin HCl 0.4 mg QPM PO 08/06/25 18:00 UNV Exam Vital Signs Vital Signs Date Time Temp Pulse Resp B/P (MAP) Pulse Ox O2 Delivery O2 Flow Rate FiO2 08/06/25 14:45 68 18 170/68 (102) 96 08/06/25 11:45 98.4 98.4 08/06/25 11:45 Room Air* 0 21 Exam General Appearance: Cooperative. Well developed. Well nourished. NAD. Head Exam: Normal inspection Neck Exam: Normal inspection. Non-tender. Normal alignment Pulmonary/Respiratory: Chest non-tender. Clear bilateral breath sounds, no crackles, no wheezing. Cardiovascular/Chest: Regular rate and rhythm. No murmurs. No JVD. Peripheral Pulses: 2+ Radial (R). 2+ Radial (L). 2+ Pedal (R). 2+ Pedal (L) Abdominal Exam: Normal bowel sounds. Soft. normal abdomen, no visible veins, No hepatospenomegaly. No masses, tenderness in right flank and right lower quadrant abdomen Ankle Exam: Negative ankle edema Lower extremities: Negative lower extremity edema Neuro/Mental Status: A&O x4. Coherent. Thoughts/Psych: Normal thought pattern. Appropriate mood and affect. Good judgement and insight Skin Exam: Normal inspection. Normal color. Warm. Dry General Appearance: Alert, Oriented X3, Cooperative, mild distress HEENT: Atraumatic, PERRLA, EOMI, Mucous membr. moist/pink Respiratory: Clear to auscultation, Normal air movement, Other Cardiovascular: Regular rate, Normal S1, Normal S2, No murmurs Abdominal: Normal bowel sounds, Soft Extremities: No clubbing, No cyanosis, No edema, Normal pulses, No tenderness/swelling Skin: No rashes, No breakdown, No significant lesion Neuro: Normal speech Psych/Mental Status: Mental status NL, Mood NL Labs/Xrays Labs Test 08/06/25 11:12 08/06/25 10:17 Range/Units Urine Color Yellow Yellow Urine Clarity Clear Clear Urine pH 5.5 5.0-9.0 Urine Specific [place] 1.023 1.001-1.035 Urine Protein 2+ H Negative Urine Ketones Negative Negative Urine Blood Negative Negative /uL Urine Nitrite Negative Negative Urine Bilirubin Negative Negative Urine Urobilinogen 2 H Negative mg/dL Urine Leukocyte Esterase 1+ Negative /uL Urine RBC 3 0 - 3 /hpf Urine Microscopic WBC 12 H 0-3 /HPF Urine Squamous Epithelial Cells Few <5 /hpf Urine Bacteria None seen None Seen /hpf Urine Yeast (Budding) Occasional None Seen /hpf Urine Glucose Normal Normal mg/dL White Blood Count 9.4 4.4-10.8 10^3/uL Red Blood Count 3.30 L 4.5-5.90 10^6/uL Hemoglobin 9.8 L 13.5-17.5 g/dL Hematocrit 29.2 L 41.0-53.0 % Mean Corpuscular Volume 88.3 80.0-100.0 fL Mean Corpuscular Hemoglobin 29.7 28.0-32.0 pg Mean Corpuscular Hemoglobin Concent 33.6 32.0-36.0 g/dL Red Cell Distribution Width 13.6 11.8-14.3 % Platelet Count 355 140-450 10^3/uL Mean Platelet Volume 6.9 6.9-10.8 fL Neutrophils (%) (Auto) 80.6 H 37.0-80.0 % Lymphocytes (%) (Auto) 11.9 10.0-50.0 % Monocytes (%) (Auto) 6.2 0.0-12.0 % Eosinophils (%) (Auto) 0.8 0.0-7.0 % Basophils (%) (Auto) 0.5 0.0-2.0 % Neutrophils # (Auto) 7.6 1.6-8.6 10 ^3/uL Lymphocytes # (Auto) 1.1 0.4-5.4 10 ^3/uL Monocytes # (Auto) 0.6 0-1.3 10 ^3/uL Eosinophils # (Auto) 0.1 0-0.8 10 ^3/uL Basophils # (Auto) 0 0-0.2 10 ^3/uL Nucleated Red Blood Cells 0.0 % Sodium Level 142 136-145 mmol/L Potassium Level 4.3 3.5-5.1 mmol/L Chloride Level 109 H 98-107 mmol/L Carbon Dioxide Level 23 20-31 mmol/L Anion Gap 10 5-15 Blood Urea Nitrogen 34 H 9-23 mg/dL Creatinine 2.11 H 0.700-1.30 mg/dL Glomerular Filtration Rate Calc 31 >90 mL/min BUN/Creatinine Ratio 16.1 10.0-20.0 Serum Glucose 156 H 74-106 mg/dL Calcium Level 8.7 8.7-10.4 mg/dL SEPSIS Sepsis Screen Date sepsis recognized/suspect: Aug 06, 2025 Time Sepsis recognized/suspect: 1145 Recent Procedure: No On Antibiotic Therapy: No Respiratory Rate >20: No Heart Rate >90: No Temp<36 C (96.8 F) or >38.3 C: No SBP <90 or MAP <65 mmHG: No New Acute Mental Status Change: No Is the patient on CPAP, BIPAP,: No Physician Orders Ct Ab Pel Wo Con-No Oral Or Iv (08/06/25 10:50) He[place]ock Iv (08/06/25 10:50) Admit (08/06/25 14:30) Allergies (08/06/25 14:30) Code Status (08/06/25 14:30) Sodium Chloride 0.9% (08/06/25 14:30) Hydrocodone-Acet 5/325mg Tab ([place] 5/32 (08/06/25 14:30) Ondansetron Hcl (Zofran) (08/06/25 14:30) Complete Blood Count (08/07/25 04:00) Comprehensive Metabolic Panel (08/07/25 04:00) Npo (Nothing By Mouth) Diet (08/06/25 Dinner) Condition: Fair (08/06/25 14:30) Enoxaparin Sodium (Lovenox) (08/07/25 10:00) Morphine Sulfate Injection (08/06/25 14:30) Nitroglycerin Sublingual (Ntrostat Subli (08/06/25 14:30) Morphine Sulfate Injection (08/06/25 14:30) Oxygen By Nasal Cannula (08/06/25 14:30) Stat Ekg For Chest Pain (08/06/25 14:30) Notify Of Changes From Base (08/06/25 14:30) Senior Accounting Specialist For 24 Hours (08/06/25 14:30) Emergency Dysrhythmia Protocol (08/06/25 14:30) Rhythm Strips Once Every Shift (08/06/25 14:30) Reed Catheters (08/06/25 ) Ceftriaxone 1gm/50ml (Rocephin) (08/07/25 09:00) Tamsulosin Hydrochloride (Flomax) (08/06/25 15:00) Tamsulosin Hydrochloride (Flomax) (08/06/25 18:00) Strain All Urine (08/06/25 ) * Urology Consult (08/06/25 14:51) Urine Bacterial Culture (08/06/25 14:52) Thyroid Stimulating Hormone (08/06/25 14:56) Rapid Influenza A&B (08/06/25 14:56) Covid19 Antigen Francia (08/06/25 ) Vital Signs Date Time Temp Pulse Resp B/P (MAP) Pulse Ox O2 Delivery O2 Flow Rate FiO2 08/06/25 14:45 68 18 170/68 (102) 96 08/06/25 11:45 98.4 64 20 143/55 (84) 97 98.4 08/06/25 11:45 64 20 97 Room Air* 0 21 08/06/25 10:27 98.4 78 18 142/50 98 98.4 Laboratory Tests Test 08/06/25 10:17 White Blood Count 9.4 10^3/uL (4.4-10.8) Medications Medications Dose Ordered Sig/Letty Route Start Time Stop Time Status Last Admin Dose Admin Sodium Chloride 500 ml @ 500 mls/hr Q1H ONCE IVB 08/06/25 11:00 08/06/25 11:59 DC 08/06/25 12:11 500 MLS/HR Assessment/Plan Assessment/Plan Acute pyelonephritis Acute complicated UTI Right hydronephrosis Rt Obstructed nephrolithiasis Possible acute cystitis -abdominal pelvic CT showed Moderate right hydronephrosis with obstructing 8 mm calculus in the distal right ureter, Enlarged prostate,Mild circumferential thickening of the bladder wall is nonspecific. Correlate clinically to exclude cystitis. -IV fluids -IV Ceftriaxone -UA positive for UTI -urine culture ordered, straining of urine -flomax -urology consult -Reed Hypertensive crisis -continue home medication -monitor BP MIGUEL ,likely due to VMN -IV fluids -monitor labs -avoid nephrotoxic agents Diabetes mellitus, controlled -mild insulin sliding scale -ordered HbA1c Hypertension, controlled -continue home medication Dyslipidemia, controlled - PUD prophylaxis: Protonix DVT prophylaxis: Lovenox Goals of care: Full code, discussed for >23 minutes Plan discussed with patient Plan discussed with Dr Aguilar Plan discussed with: Patient, Spouse My Orders Orders - LAURA JOHNSON RESIDENT Procedure Category Date Status Time Admit ADMIT 08/06/25 Transmitted 14:30 Allergies BELINDA 08/06/25 In Process 14:30 Code Status CODE 08/06/25 Transmitted 14:30 Sodium Chloride 0.9% PHA 08/06/25 Logged 14:30 Hydrocodone-Acet PHA 08/06/25 Logged 5/325mg Tab ([place] 14:30 Ondansetron Hcl PHA 08/06/25 Logged (Zofran) 14:30 Complete Blood Count LAB 08/07/25 Verified 04:00 Comprehensive LAB 08/07/25 Verified Metabolic Panel 04:00 Npo (Nothing By DIET 08/06/25 Transmitted Mouth) Diet Dinner Condition: Fair BELINDA 08/06/25 In Process 14:30 Enoxaparin Sodium PHA 08/07/25 Logged (Lovenox) 10:00 Morphine Sulfate PHA 08/06/25 Logged Injection 14:30 Nitroglycerin PHA 08/06/25 Logged Sublingual (Ntrostat 14:30 Morphine Sulfate PHA 08/06/25 Logged Injection 14:30 Oxygen By Nasal RT 08/06/25 Transmitted Cannula 14:30 Stat Ekg For Chest BELINDA 08/06/25 In Process Pain 14:30 Notify Of Changes BELINDA 08/06/25 In Process From Base 14:30 Senior Accounting Specialist For [facility] 08/06/25 In Process 24 Hours 14:30 Emergency Dysrhythmia [facility] 08/06/25 In Process Protocol 14:30 Rhythm Strips Once [facility] 08/06/25 In Process Every Shift 14:30 Reed Catheters ED NURSING 08/06/25 Transmitted Ceftriaxone 1gm/50ml PHA 08/07/25 Logged (Rocephin) 09:00 Tamsulosin PHA 08/06/25 Logged Hydrochloride (Flomax) 15:00 Tamsulosin PHA 08/06/25 Logged Hydrochloride (Flomax) 18:00 Strain All Urine ED NURSING 08/06/25 Transmitted * Urology Consult CONS 08/06/25 Transmitted 14:51 Urine Bacterial MIS 08/06/25 Logged Culture 14:52 Thyroid Stimulating LAB 08/06/25 Logged Hormone 14:56 Rapid Influenza A&B LAB 08/06/25 Logged 14:56 Covid19 Antigen Francia LAB 08/06/25 Logged LAURA JOHNSON RESIDENT Aug 06, 2025 15:16 STACEY ESPINOSA RESIDENT Aug 06, 2025 16:30
[2025-08-06] MEDS ORDERED: LISI40TA16 PO (15:18)
[2025-08-06 16:06] LABS: COVID19 ANTIGEN SOFIA FIA NEGATIVE (NEGATIVE)
[2025-08-06] MEDS: TAMSULOSIN HYDROCHLORIDE 0.4 MG CAP PO ONE (16:20)
[2025-08-06] MEDS: SODIUM CHLORIDE 0.9% 1,000 ML IV SCH (16:20)
[2025-08-06] MEDS ORDERED: CHLORTHALIDONE 25 MG TAB PO ONE ×2 (16:30)
[2025-08-06 17:00] VITALS: BP 185/78; PULSE 66; RESP 16; TEMP 98.5; O2SAT 92
[2025-08-06 17:00] LABS: Albumin 3.8 g/dL (3.2-4.8); Alkaline Phosphatase 91 U/L (46-116); Cholesterol 106 mg/dL (< 200); Total Protein 6.5 g/dL (5.7-8.2); Triglycerides 96 mg/dL (< 150)
[2025-08-06 17:01] LABS: Alanine Aminotransferase < 9 U/L (7-40); Bilirubin, Direct < 0.1 mg/dL (<0.3); Bilirubin, Total 0.2 mg/dL (0.2-1.0); HDL Cholesterol 37 mg/dL (40-59)
--- NOTE | 2025-08-06 17:56 | DVHINCON2 ---
Date of service: Aug 06, 2025 Referring Physician Hospitalist Reason for Consultation 8 mm right distal ureteral stone with moderate hydronephrosis and azotemia (Creatinine 2.11) History of Present Illness Patient has symptomatic 8 mm right distal ureteral stone with moderate hydronephrosis and azotemia. 80 year old male presenting to the ED with chief complaint of flank pain. Patient reports that he has been experiencing 6/10 right sided flank pain with associated nausea and RLQ abdominal pain for the past 3 days. Patient relays rob t he has history of kidney stones to the right side. Patient denies any dysuria, hematuria, fever, chills, vomiting, or diarrhea. Chief Complaint: Back Pain Primary Care Provider: UNKNOWN Reviewed notes: Nurses Notes, Medications, Allergies Allergies: Coded Allergies: NO KNOWN ALLERGIES (Unverified , 08/13/15) Home Meds Reported Medications Lisinopril (Lisinopril) 40 Mg Tab, 1 TAB PO DAILY 08/06/25 Trazodone HCl (Trazodone Hydrochloride) 50 Mg Tab, 50 MG PO HS, TAB 09/24/21 Tamsulosin Hcl (Tamsulosin Hcl) 0.4 Mg Cap, 1 CAP PO DAILY, #30 CAP 5 Refills 09/24/21 Metformin Hydrochloride (Metformin Hcl) 850 Mg Tab, 1 TAB PO BID, #60 TAB 5 Refills 09/24/21 Lisinopril (Lisinopril) 20 Mg Tab, 10 MG PO DAILY, TAB 09/24/21 Glipizide (Glipizide) 10 Mg Tab, 1 TAB PO BID, #60 TAB 5 Refills 09/24/21 Amlodipine Besylate (NORVASC TABLET) 5 Mg Tb, 1 TAB PO DAILY, #30 TAB 5 Refills 09/24/21 Fluoxetine Hcl (Fluoxetine Hcl) 10 Mg Cap, 40 MG PO DAILY for 30 Days, MG 09/24/21 Atorvastatin Calcium (ATORVASTATIN CALCIUM) 20 Mg Tab, 20 MG PO HS, TAB 09/24/21 Information Source: Patient, Spouse Mode of Arrival: Ambulatory Severity: Moderate Timing: Days Duration: Since onset Prehospital treatment: None Onset: Spontaneous History of: Kidney stone Location: (R) Flank Modifying factors: None associated signs and symptoms: Abdominal Pain, Nausea, Flank Pain Past Medical History CVA, Depression, DM, High Lipids, HTN, Kidney Stones Past Surgical History Hernia Repair, Pacemaker Surgical History (Other): Eye surgery Family History: Colitis G8 MOTHER, Allergies: Coded Allergies: NO KNOWN ALLERGIES (Unverified , 08/13/15) Home Meds Reported Medications Lisinopril (Lisinopril) 40 Mg Tab, 1 TAB PO DAILY 08/06/25 Trazodone HCl (Trazodone Hydrochloride) 50 Mg Tab, 50 MG PO HS, TAB 09/24/21 Tamsulosin Hcl (Tamsulosin Hcl) 0.4 Mg Cap, 1 CAP PO DAILY, #30 CAP 5 Refills 09/24/21 Metformin Hydrochloride (Metformin Hcl) 850 Mg Tab, 1 TAB PO BID, #60 TAB 5 Refills 09/24/21 Lisinopril (Lisinopril) 20 Mg Tab, 10 MG PO DAILY, TAB 09/24/21 Glipizide (Glipizide) 10 Mg Tab, 1 TAB PO BID, #60 TAB 5 Refills 09/24/21 Amlodipine Besylate (NORVASC TABLET) 5 Mg Tb, 1 TAB PO DAILY, #30 TAB 5 Refills 09/24/21 Fluoxetine Hcl (Fluoxetine Hcl) 10 Mg Cap, 40 MG PO DAILY for 30 Days, MG 09/24/21 Atorvastatin Calcium (ATORVASTATIN CALCIUM) 20 Mg Tab, 20 MG PO HS, TAB 09/24/21 Current Medications Current Medications Medications (Trade) Dose Ordered Sig/Letty Route PRN Reason Start Time Stop Time Status Last Admin Sodium Chloride 1,000 ml @ 60 mls/hr [id number] IV 08/06/25 14:30 08/06/25 16:20 Acetaminophen/ Hydrocodone Bitart ([place] 5/325MG Tab) 1 tab Q4HP PRN PO MODERATE PAIN (4-6 PAIN SCALE) 08/06/25 14:30 Ondansetron HCl (Zofran) 4 mg Q4HP PRN IV NAUSEA / VOMITING 08/06/25 14:30 Enoxaparin Sodium (Lovenox) 30 mg DAILY SC 08/07/25 10:00 Morphine Sulfate 2 mg Q4HPRN PRN IV SEVERE PAIN (7-10 PAIN SCALE) 08/06/25 14:30 Nitroglycerin (Ntrostat Sublingual) 0.4 mg Q5MINP PRN SL FOR CHEST PAIN 08/06/25 14:30 Morphine Sulfate 2 mg Q30M PRN IV FOR CHEST PAIN 08/06/25 14:30 Ceftriaxone Sodium 50 ml @ 100 mls/hr DAILY@09 IV 08/06/25 15:56 08/06/25 16:20 Tamsulosin HCl (Flomax) 0.4 mg QPM PO 08/07/25 18:00 Amlodipine Besylate (Norvasc Tablet) 10 mg DAILY PO 08/07/25 10:00 Review of Systems Constitutional: denies: chills, diaphoresis, fatigue, fever, malaise, sweats, weakness, others EENTM: denies: blurred vision, double vision, ear bleeding, ear discharge, ear drainage, ear pain, ear ringing, eye pain, eye redness, hearing loss, mouth pain, mouth swelling, nasal discharge, nose bleeding, nose congestion, nose pain, photophobia, tearing, throat pain, throat swelling, voice changes, others Respiratory: denies: cough, hemoptysis, orthopnea, SOB at rest, shortness of breath, SOB with excertion, stridor, wheezing, others Cardiovascular: denies: chest pain, dizzy spells, diaphoresis, Dyspnea on exertion, edema, irregular heart beat, left arm pain, lightheadedness, palpitati ons, PND, syncope, others Gastrointestinal: reports: abdominal pain, nausea; denies: abdomen distended, blood streaked bowels, constipated, diarrhea, dysphagia, difficulty swallowing, hematemesis, melena, poor appetite, poor fluid intake, rectal bleeding, rectal pain, vomiting, others Genitourinary: reports: flank pain; denies: burning, dysuria, frequency, hematuria, incontinence, penile discharge, penile sore, pain, testicle pain, testicle swelling, urgency, others Neurological: denies: dizziness, fainting, headache, left sided numbness, left sided weakness, numbness, paresthesia, pre-existing deficit, right sided numbness, right sided weakness, seizure, speech problems, tingling, tremors, weakness, others Musculoskeletal: denies: back pain, gout, joint pain, joint swelling, muscle pain, muscle stiffness, neck pain, others Integumetry: denies: bruises, change in color, change in hair/nails, dryness, laceration, lesions, lumps, rash, wounds, others Allergic/Immunocompromised: denies: Difficulty Healing, Frequent Infections, Hives, Itching, others Hematologic/Lymphatic: denies: anemia, blood clots, easy bleeding, easy bruising, swollen glands, others Endocrine: denies: excessive hunger, excessive sweating, excessive thirst, excessive urination, flushing, intolerance to cold, intolerance to heat, unexplained weight gain, unexplained weight loss, others Psychiatric: denies: anxiety, bipolar disorder, depression, hopeless, panic disorder, schizophrenia, sleepless, suicidal, others All Other Systems: Reviewed and Negative Vital Signs Vital Signs Date Time Temp Pulse Resp B/P (MAP) Pulse Ox O2 Delivery O2 Flow Rate FiO2 08/06/25 15:53 98.5 73 19 170/68 (102) 95 98.5 08/06/25 11:45 Room Air* 0 21 Physical Exam General Appearance: Moderate Distress HEENT: Normal ENT Inspection, Pharynx Normal, TMs Normal Neck: Full Range of Motion, Non-Tender, Normal, Normal Inspection Respiratory: Chest Non-Tender, Lungs Clear, No Accessory Muscle Use, No R espiratory Distress, Normal Breath Sounds Cardiovascular: No Edema, No JVD, No Murmur, No Gallop, Normal Peripheral Pulses, Regular Rate/Rhythm Breast Exam: Deferred Gastrointestinal: No Organomegaly, Non Tender, No Pulsatile Mass, Normal Bowel Sounds, Soft Genitalia: Deferred Pelvic: Deferred Rectal: Deferred Extremities: No calf tenderness, Normal capillary refill, No pedal edema Musculoskeletal : Location: Right Extremity Location: Back Apperance: Tenderness: Moderate Neurologic: Alert, senior analyst II-XII nml as Tested, No Motor Deficits, Normal Affect, Normal Mood, No Sensory Deficits Cerebellar Function: Normal Reflexes: Normal Skin: Dry, Normal Color, Warm Lymphatic: No Adenopathy Labs/Diagnostic Data Labs Test 08/06/25 11:12 08/06/25 10:17 08/06/25 00:00 Range/Units Urine Color Yellow Yellow Urine Clarity Clear Clear Urine pH 5.5 5.0-9.0 Urine Specific [place] 1.023 1.001-1.035 Urine Protein 2+ H Negative Urine Ketones Negative Negative Urine Blood Negative Negative /uL Urine Nitrite Negative Negative Urine Bilirubin Negative Negative Urine Urobilinogen 2 H Negative mg/dL Urine Leukocyte Esterase 1+ Negative /uL Urine RBC 3 0 - 3 /hpf Urine Microscopic WBC 12 H 0-3 /HPF Urine Squamous Epithelial Cells Few <5 /hpf Urine Bacteria None seen None Seen /hpf Urine Yeast (Budding) Occasional None Seen /hpf Urine Glucose Normal Normal mg/dL White Blood Count 9.4 4.4-10.8 10^3/uL Red Blood Count 3.30 L 4.5-5.90 10^6/uL Hemoglobin 9.8 L 13.5-17.5 g/dL Hematocrit 29.2 L 41.0-53.0 % Mean Corpuscular Volume 88.3 80.0-100.0 fL Mean Corpuscular Hemoglobin 29.7 28.0-32.0 pg Mean Corpuscular Hemoglobin Concent 33.6 32.0-36.0 g/dL Red Cell Distribution Width 13.6 11.8-14.3 % Platelet Count 355 140-450 10^3/uL Mean Platelet Volume 6.9 6.9-10.8 fL Neutrophils (%) (Auto) 80.6 H 37.0-80.0 % Lymphocytes (%) (Auto) 11.9 10.0-50.0 % Monocytes (%) (Auto) 6.2 0.0-12.0 % Eosinophils (%) (Auto) 0.8 0.0-7.0 % Basophils (%) (Auto) 0.5 0.0-2.0 % Neutrophils # (Auto) 7.6 1.6-8.6 10 ^3/uL Lymphocytes # (Auto) 1.1 0.4-5.4 10 ^3/uL Monocytes # (Auto) 0.6 0-1.3 10 ^3/uL Eosinophils # (Auto) 0.1 0-0.8 10 ^3/uL Basophils # (Auto) 0 0-0.2 10 ^3/uL Nucleated Red Blood Cells 0.0 % Sodium Level 142 136-145 mmol/L Potassium Level 4.3 3.5-5.1 mmol/L Chloride Level 109 H 98-107 mmol/L Carbon Dioxide Level 23 20-31 mmol/L Anion Gap 10 5-15 Blood Urea Nitrogen 34 H 9-23 mg/dL Creatinine 2.11 H 0.700-1.30 mg/dL Glomerular Filtration Rate Calc 31 >90 mL/min BUN/Creatinine Ratio 16.1 10.0-20.0 Serum Glucose 156 H 74-106 mg/dL Hemoglobin A1c 6.9 H <5.7 % A1C Calcium Level 8.7 8.7-10.4 mg/dL Total Bilirubin 0.2 0.2-1.0 mg/dL Direct Bilirubin < 0.1 <0.3 mg/dL Aspartate Amino Transferase (AST) 11 L 13-40 U/L Alanine Aminotransferase (ALT) < 9 7-40 U/L Alkaline Phosphatase 91 46-116 U/L B-Type Natriuretic Peptide 266.68 0-100 pg/mL Total Protein 6.5 5.7-8.2 g/dL Albumin 3.8 3.2-4.8 g/dL Triglycerides Level 96 < 150 mg/dL Cholesterol Level 106 < 200 mg/dL LDL Cholesterol 53 < 100 mg/dL HDL Cholesterol 37 L 40-59 mg/dL Thyroid Stimulating Hormone (TSH) 1.65 0.55-4.78 uIU/mL Influenza Type A Antigen Negative Negative Influenza Type B Antigen Negative Negative SARS-CoV-2 Antigen (Rapid) Negative NEGATIVE PATIENT: HAYLEE SHOEMAKERACCT: [id number] UNIT: [id number] : 1945 LOC: ER ROOM / BED: / AGE / SEX: 80 / M ADM STATUS: REG ER SERVICE 1050 ORDERING PHYSICIAN: DEUCE FULLER MD PROCEDURE(s): ABPL - CT AB PEL WO CON-NO ORAL OR IV REASON: right flank ORDER NUMBER(s): [id number], ACCESSION NUMBER(s): [id number] CLINICAL INFORMATION: 80 years old, Male; right flank. TECHNIQUE: Axial CT images of the abdomen and pelvis were obtained without IV contrast. Coronal and sagittal reformatted images were obtained, reviewed, and stored. Evaluation of the parenchymal organs is limited without IV contrast. Evaluation of the bowel and mesentery is limited without oral contrast. All CT scans at this medical facility are performed using dose modulation techniques as appropriate to a performed exam including the following: Automated exposure control was utilized; adjustment of the MA and/or KV according to patient size; and use of iterative reconstruction technique. CTDIvol = 6.35 mGy DLP = 313.29 mGy-cm COMPARISON: CT CT AB PEL WO CON-NO ORAL OR IV on DOS: 08/05/25, ABPL on DOS: 10/10/22 FINDINGS: Motion limited study. Lung bases: Lung bases are clear. Liver: Grossly unremarkable given the limitations of the examination. Biliary: Gallbladder is not visualized. No biliary ductal dilatation. Spleen: Unremarkable. Pancreas: Limited evaluation of the pancreas due to motion artifact. Adrenal glands: Adrenal glands appear thickened, although poorly evaluated due to motion artifact. Kidneys: Moderate right hydronephrosis with obstructing calculus in the distal right ureter measuring up to 8 mm in greatest dimension approximately 3.3 cm proximal to the ureterovesical junction. No other renal or ureteral calculi visualized. Aorta/Vascular: Dense atherosclerotic calcification. No abdominal aortic aneu rysm. Retroperitoneum: Grossly unremarkable given the limitations of the examination. Bowel/mesentery: Nonspecific nondilated fluid-filled small bowel loops. No small-bowel obstruction. Appendix is not visualized. Moderate stool in the colon. Pelvic organs: Enlarged prostate with impression on the bladder base. Bladder: Mild circumferential thickening of the bladder wall. Abdominal wall: Diffuse anasarca. No evidence for hernia. Bones: No acute fracture or suspicious intraosseous lesion. IMPRESSION: 1. Motion limited study. 2. Moderate right hydronephrosis with obstructing 8 mm calculus in the distal right ureter. 3. No other renal or ureteral calculi visualized. 4. Nonspecific nondilated fluid-filled small bowel loops. Findings may be seen with ileus or enteritis in the appropriate clinical setting. No small bowel obstruction. 5. Enlarged prostate. 6. Mild circumferential thickening of the bladder wall is nonspecific. Correlate clinically to exclude cystitis. 7. Additional findings as described above. ATED BY: DL ODEN DO DICTATED DATE/TIME: 08/06/25 1130 SIGNED BY: DL ODEN DO SIGNED DATE/TIME: 08/06/25 1130 CC: Assessment Moderate right hydronephrosis with flank pain due to 8 mm distal ureteral stone Plan/Recommendation Cystoscopy with right ureteteral stent placement (IR service not available for right PNT on weekends) Subsequent Outpatient ESWL and stent removal TBA Plan discussed with: Patient, Other MENDOZA CRESPO MD Aug 06, 2025 17:56
[2025-08-06 18:42] LABS: INR 1.04 (0.9-1.15); Partial Thromboplastin Time 34.4 SEC (24.5-34.5); Prothrombin Time 11.0 sec (9.3-11.8)
[2025-08-06] MEDS ORDERED: FINA5TAB4 PO (18:42)
[2025-08-06] MEDS ORDERED: ASPI-543 PO (18:43)
[2025-08-06 20:00] VITALS: PULSE 86; RESP 17; O2SAT 91
[2025-08-06] MEDS: CHLORTHALIDONE 25 MG TAB PO ONE ×2 (20:18→20:29)
[2025-08-06 21:00] VITALS: BP 157/61; PULSE 86; RESP 17; TEMP 99; O2SAT 91
[2025-08-07] VITALS (9 sets, daily range): BP systolic 143–162; BP diastolic 60–108; PULSE 64–79; RESP 15–19; TEMP 97.9–98.9; O2SAT 97–100
[2025-08-07] MEDS: hydrALAZINE HCL 20 MG/ML VL IV PRN (02:02)
--- NOTE | 2025-08-07 05:48 | DVH ---
CHEST RADIOGRAPH Indication: PRE-OP Technique: Single frontal view of the chest was obtained COMPARISON: CHEST TWO VIEWS ROUTINE on DOS: 09/21/21 FINDINGS: Lines and Tubes: None Lungs: New Moderate multifocal right hemithoracic pulmonary airspace disease. The left lung is clear . Pleura: No effusion. No pneumothorax. Cardiomediastinal contours: Unremarkable Bones: Unremarkable IMPRESSION: 1. New moderate multifocal right hemithoracic pulmonary airspace disease.
[2025-08-07 07:31] LABS: Hematocrit 28.4 % (41.0-53.0); Hemoglobin 9.8 g/dL (13.5-17.5); Mean Corpuscular Hemoglobin 30.6 pg (28.0-32.0); Mean Corpuscular Volume 88.7 fL (80.0-100.0); Nucleated Red Blood Cells % 0.1 %
[2025-08-07] MEDS: CIPROFLOXACIN 400MG/200ML 200 ML IV ONE (07:31)
[2025-08-07 08:00] LABS: Potassium 3.9 mmol/L (3.5-5.1); Sodium 143 mmol/L (136-145)
[2025-08-07 08:04] LABS: Chloride 111 mmol/L (98-107)
[2025-08-07] MEDS ORDERED: KETAMINE 50mg/ML 1ml syringe ONE (08:23)
[2025-08-07] MEDS ORDERED: MIDAZOLAM HCL 2MG/2ML 2ml VIAL (1mg/ml) ONE (08:23)
[2025-08-07] MEDS ORDERED: ONDANSETRON HCL 4 MG/2 ML VIAL ONE (08:24)
[2025-08-07] MEDS ORDERED: GLYCOPYRROLATE 0.2 MG/ML 1ML VIAL ONE (08:24)
[2025-08-07] MEDS ORDERED: PROPOFOL 10 MG/ML 20 ML IV ONE (08:24)
[2025-08-07] MEDS: ENOXAPARIN SOD 30 MG/0.3 ML SYRINGE SC SCH (08:49)
[2025-08-07 09:25] LABS: Anion Gap 11 (5-15); Carbon Dioxide 21 mmol/L (20-31)
[2025-08-07 09:28] LABS: Calcium 8.5 mg/dL (8.7-10.4)
[2025-08-07 09:30] LABS: Alkaline Phosphatase 90 U/L (46-116)
[2025-08-07 09:31] LABS: BUN/Creatinine Ratio 16.2 (10.0-20.0); Total Protein 6.1 g/dL (5.7-8.2)
[2025-08-07 09:32] LABS: Alanine Aminotransferase 18 U/L (7-40)
[2025-08-07 09:33] LABS: Bilirubin, Total 0.2 mg/dL (0.2-1.0); Blood Urea Nitrogen 32 mg/dL (9-23); Glucose 114 mg/dL (74-106)
[2025-08-07 09:34] LABS: Albumin 3.5 g/dL (3.2-4.8)
[2025-08-07] MEDS: IOHEXOL 300 MG/ML 100ML BOTTLE IJ ONE (10:58)
--- NOTE | 2025-08-07 11:10 | DVHNC2 ---
Procedure - OPERATIVE REPORT Pre-op. Diagnosis: Ureteral calculus - RIGHT Flank pain - RIGHT Hydronephrosis - RIGHT Post-op. Diagnosis: Same as pre-op diagnosis Operation: Cystoscopy with stone manipulation - RIGHT Cystoscopy with ureteral stent placement - RIGHT Cystoscopy with retrograde pyelogram - RIGHT Anesthesia: General Indications: Patient was seen for obstructing 8 mm symptomatic RIGHT distal ureteral stone and findings of hydronephrosis. The indications, risks, complications, alternatives and benefits of cystoscopy with ureteral stent placement, retrograde pyelogram and possible stone extraction are discussed with patient. All questions were encouraged and answered. Patient is aware of risks/complications including but not limited to infection, bleeding, persistent pain, possible ureteral injury requiring additional surgical management. Patient is also aware of alternatives of this procedure such as conservative management, lithotripsy or lithotomy. He elected to proceed. Details of Procedure: After obtaining the consent, patient is taken to OR suite and underwent general anesthesia. Pre-operative antibiotic was give. Timeout was performed and deemed to be correct. With the patient positioned in the lithotomy, the area of the genitalia prepped and draped in usual sterile fashion. 21 F Cystoscope is used to access the urethra and bladder. Prostate gland was enlarged with bilobar hyperplasia but no median lobe obstruction. No FB, tumors or stones are seen in the bladder. The Right ureteric orifice is cannulated with a sensor tip guide wire. A 5 Fr open-ended catheter was advanced over the wire to right distal ureter, retrograde pyelogram with 50% contrast was performed to delineate the renal pelvis and calices. Then the wire was advanced through the open-ended to the right renal pelvis under fluoroscopy, and open ended was removed. At this point , a 5 f x [address] ureteral stent is placed appropriately over the wire into the Right kidney. Bladder is decompressed and cystoscope is removed in entirety. Patient is awaken and moved to in stable conation. Specimens: Complications: None Findings: Notes: Patient will need outpatient ESWL MENDOZA CRESPO MD Aug 07, 2025 11:09
[2025-08-07] MEDS: ACETAMINOPHEN IV 1000 MG/100ML (10MG/ML) IV ONE (11:15)
[2025-08-07] MEDS ORDERED: HYDROmorphone HCL 2 MG/ML VL/or syr IV PRN (11:15)
--- NOTE | 2025-08-07 11:56 | DVH ---
Date: 08/07/2025 11:00 AM Examination: 5 views submitted intraoperative History: STENT PLACEMENT Comparison: CT CT AB PEL WO CON-NO ORAL OR IV on DOS: 08/06/25, CT CT AB PEL WO CON-NO ORAL OR IV on D OS: 08/05/25, CT ABD PELVIS WO CONTRAST on DOS: 10/10/22 TECHNIQUE: Intraoperative views FINDINGS: Intraoperative views submitted, there is a ureteral stent. IMPRESSION: 1. Intraoperative views as above
--- NOTE | 2025-08-07 12:05 | DVH ---
C-ARM FLUOROSCOPY: PROCEDURE: Intraoperative renal stent FLUOROSCOPY TIME: 22 seconds FINDINGS: Spot intraoperative C arm radiographs demonstrating right ureteral stent. IMPRESSION: 1. Please refer to surgical report for detailed findings.
[2025-08-07] MEDS: AZITHROMYCIN 500MG/ 250ML 250 ML IV SCH (12:45)
--- NOTE | 2025-08-07 16:28 | DVHPN2 ---
Subjective Admitted for UTI and right ureteral stone with hydronephrosis Changes from previous H/P or p: Changes Gastrointestinal: Nausea Objective Vitals Vital Signs Date Time Temp Pulse Resp B/P (MAP) Pulse Ox O2 Delivery O2 Flow Rate FiO2 08/07/25 12:47 162/71 08/07/25 12:03 97.9 64 15 98 97.9 08/07/25 11:59 Room Air 0 97 Intake/Output Intake and Output 08/07/25 06:59 Intake Total 740 ml Output Total 325 ml Balance 415 ml Intake Oral 240 ml IV Total 500 ml Output Urine Total 325 ml General Appearance: Alert, Oriented X3, Cooperative Lungs: Clear to auscultation, Normal air movement Cardiovascular: Regular rate, Normal S1 Abdomen: Normal bowel sounds, Soft, No tenderness Extremities: No edema Medications Current Medications Medications Dose Ordered Sig/Letty Route Start Time Stop Time Status Last Admin Dose Admin Sodium Chloride 1,000 ml @ 60 mls/hr [id number] IV 08/06/25 14:30 08/06/25 16:20 60 MLS/HR Acetaminophen/ Hydrocodone Bitart 1 tab Q4HP PRN PO 08/06/25 14:30 Ondansetron HCl 4 mg Q4HP PRN IV 08/06/25 14:30 Enoxaparin Sodium 30 mg DAILY SC 08/07/25 10:00 Morphine Sulfate 2 mg Q4HPRN PRN IV 08/06/25 14:30 Nitroglycerin 0.4 mg Q5MINP PRN SL 08/06/25 14:30 Morphine Sulfate 2 mg Q30M PRN IV 08/06/25 14:30 Ceftriaxone Sodium 50 ml @ 100 mls/hr DAILY@09 IV 08/06/25 15:56 08/06/25 16:20 100 MLS/HR Tamsulosin HCl 0.4 mg QPM PO 08/07/25 18:00 Amlodipine Besylate 10 mg DAILY PO 08/07/25 10:00 08/07/25 12:47 10 MG Hydralazine HCl 10 mg Q6HP PRN IV 08/07/25 01:45 08/07/25 02:02 10 MG Azithromycin 250 ml @ 125 mls/hr DAILY IV 08/07/25 10:00 08/07/25 12:45 125 MLS/HR Laboratory Results Laboratory Tests 08/07/25 06:14 Chemistry Test 08/07/25 06:14 Albumin 3.5 g/dL (3.2-4.8) Calcium Level 8.5 mg/dL (8.7-10.4) L Total Protein 6.1 g/dL (5.7-8.2) Coagulation Test 08/06/25 17:30 Prothrombin Time 11.0 sec (9.3-11.8) Prothrombin Time INR 1.04 (0.9-1.15) Activated Partial Thromboplast Time 34.4 SEC (24.5-34.5) LFT Test 08/07/25 06:14 Alanine Aminotransferase (ALT) 18 U/L (7-40) Alkaline Phosphatase 90 U/L (46-116) Aspartate Amino Transferase (AST) 14 U/L (13-40) Total Bilirubin 0.2 mg/dL (0.2-1.0) Urinalysis Test 08/06/25 11:12 Urine Color Yellow (Yellow) Urine Clarity Clear (Clear) Urine pH 5.5 (5.0-9.0) Urine Specific [place] 1.023 (1.001-1.035) Urine Protein 2+ (Negative) H Urine Ketones Negative (Negative) Urine Blood Negative /uL (Negative) Urine Nitrite Negative (Negative) Urine Bilirubin Negative (Negative) Urine Urobilinogen 2 mg/dL (Negative) H Urine Leukocyte Esterase 1+ /uL (Negative) Urine RBC 3 /hpf (0 - 3) Urine Microscopic WBC 12 /HPF (0-3) H Urine Squamous Epithelial Cells Few /hpf (<5) Urine Bacteria None seen /hpf (None Seen) Urine Yeast (Budding) Occasional /hpf (None Urine Glucose Normal mg/dL (Normal) Microbiology Microbiology Date/Time Source Procedure Growth Status 08/06/25 11:12 Voided Urine Urine Culture - Preliminary Resulted Assessment/Plan Assessment/Plan UTI Right ureteral stone with hydronephrosis Hypertension History of CVA Type 2 diabetes MIGUEL Mixed hyperlipidemia Plan IV fluids IV antibiotics Rocephin Urology consult Status post right ureteral stent placement Plan discussed with: Patient Date of Service: Aug 07, 2025 Billing Provider: JENNIFER LOZANO MD Common Visit Codes: NOT BILLABLE JENNIEFR LOZANO MD Aug 07, 2025 16:28
[2025-08-07] MEDS ORDERED: ACETAMINOPHEN 325 MG TAB PO PRN (16:30)
[2025-08-07] MEDS ORDERED: DEXTROSE (50%) 50ML SYRG IV PRN (16:30)
[2025-08-07] MEDS: TAMSULOSIN HYDROCHLORIDE 0.4 MG CAP PO SCH (18:02)
[2025-08-07] MEDS: ACCU-CHEK COMFORT CURVE STRIP VI SCH (18:24)
[2025-08-07] MEDS: InsuLIN REG 1unit/0.01ml Soln (100units/ml) SC SCH (18:29)
[2025-08-08] VITALS (7 sets, daily range): BP systolic 103–153; BP diastolic 46–69; PULSE 73–77; RESP 16–18; TEMP 36.7; O2SAT 93–99
[2025-08-08 08:30] LABS: Hematocrit 29.8 % (41.0-53.0); Hemoglobin 10.2 g/dL (13.5-17.5); Mean Corpuscular Hemoglobin 30.1 pg (28.0-32.0); Mean Corpuscular Volume 88.2 fL (80.0-100.0); Nucleated Red Blood Cells % 0.0 %
[2025-08-08 08:45] LABS: Alanine Aminotransferase 11 U/L (7-40); Albumin 3.5 g/dL (3.2-4.8); Alkaline Phosphatase 91 U/L (46-116); Anion Gap 8 (5-15); BUN/Creatinine Ratio 19.9 (10.0-20.0); Carbon Dioxide 23 mmol/L (20-31); Magnesium 1.9 mg/dL (1.6-2.6); Potassium 4.4 mmol/L (3.5-5.1); Sodium 141 mmol/L (136-145); Total Protein 6.1 g/dL (5.7-8.2)
[2025-08-08 08:47] LABS: Bilirubin, Total 0.3 mg/dL (0.2-1.0); Blood Urea Nitrogen 29 mg/dL (9-23); Calcium 8.6 mg/dL (8.7-10.4); Chloride 110 mmol/L (98-107); Glucose 116 mg/dL (74-106)
--- NOTE | 2025-08-08 09:45 | ECG ---
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
[2025-08-08] MEDS ORDERED: CIPR-273 PO (14:00)
--- NOTE | 2025-08-08 14:02 | DVHDS2 ---
Discharge Summary Date of Admission Aug 06, 2025 at 14:30 Date of Discharge: Aug 08, 2025 Labs/Diagnostic Data: Laboratory Results Test 08/08/25 12:23 08/08/25 07:46 08/06/25 17:30 08/06/25 11:12 POC Glucose 253 mg/dl (70-106) White Blood Count 12.6 10^3/uL (4.4-10.8) Red Blood Count 3.38 10^6/uL (4.5-5.90) Hemoglobin 10.2 g/dL (13.5-17.5) Hematocrit 29.8 % (41.0-53.0) Mean Corpuscular Volume 88.2 fL (80.0-100.0) Mean Corpuscular Hemoglobin 30.1 pg (28.0-32.0) Mean Corpuscular Hemoglobin Concent 34.2 g/dL (32.0-36.0) Red Cell Distribution Width 13.6 % (11.8-14.3) Platelet Count 352 10^3/uL (140-450) Mean Platelet Volume 7.4 fL (6.9-10.8) Neutrophils (%) (Auto) 80.9 % (37.0-80.0) Lymphocytes (%) (Auto) 10.8 % (10.0-50.0) Monocytes (%) (Auto) 7.2 % (0.0-12.0) Eosinophils (%) (Auto) 0.7 % (0.0-7.0) Basophils (%) (Auto) 0.4 % (0.0-2.0) Neutrophils # (Auto) 10.2 10 ^3/uL (1.6-8.6) Lymphocytes # (Auto) 1.4 10 ^3/uL (0.4-5.4) Monocytes # (Auto) 0.9 10 ^3/uL (0-1.3) Eosinophils # (Auto) 0.1 10 ^3/uL (0-0.8) Basophils # (Auto) 0 10 ^3/uL (0-0.2) Nucleated Red Blood Cells 0.0 % Sodium Level 141 mmol/L (136-145) Potassium Level 4.4 mmol/L (3.5-5.1) Chloride Level 110 mmol/L (98-107) Carbon Dioxide Level 23 mmol/L (20-31) Anion Gap 8 (5-15) Blood Urea Nitrogen 29 mg/dL (9-23) Creatinine 1.46 mg/dL (0.700-1.30) Glomerular Filtration Rate Calc 49 mL/min (>90) BUN/Creatinine Ratio 19.9 (10.0-20.0) Serum Glucose 116 mg/dL (74-106) Calcium Level 8.6 mg/dL (8.7-10.4) Magnesium Level 1.9 mg/dL (1.6-2.6) Total Bilirubin 0.3 mg/dL (0.2-1.0) Aspartate Amino Transferase (AST) 11 U/L (13-40) Alanine Aminotransferase (ALT) 11 U/L (7-40) Alkaline Phosphatase 91 U/L (46-116) Total Protein 6.1 g/dL (5.7-8.2) Albumin 3.5 g/dL (3.2-4.8) Prothrombin Time 11.0 sec (9.3-11.8) Prothrombin Time INR 1.04 (0.9-1.15) Activated Partial Thromboplast Time 34.4 SEC (24.5-34.5) Urine Color Yellow (Yellow) Urine Clarity Clear (Clear) Urine pH 5.5 (5.0-9.0) Urine Specific [place] 1.023 (1.001-1.035) Urine Protein 2+ (Negative) Urine Ketones Negative (Negative) Urine Blood Negative /uL (Negative) Urine Nitrite Negative (Negative) Urine Bilirubin Negative (Negative) Urine Urobilinogen 2 mg/dL (Negative) Urine Leukocyte Esterase 1+ /uL (Negative) Urine RBC 3 /hpf (0 - 3) Urine Microscopic WBC 12 /HPF (0-3) Urine Squamous Epithelial Cells Few /hpf (<5) Urine Bacteria None seen /hpf (None Seen) Urine Yeast (Budding) Occasional /hpf (None Urine Glucose Normal mg/dL (Normal) Test 08/06/25 10:17 08/06/25 00:00 Hemoglobin A1c 6.9 % A1C (<5.7) Direct Bilirubin < 0.1 mg/dL (<0.3) B-Type Natriuretic Peptide 266.68 pg/mL (0-100) Triglycerides Level 96 mg/dL (< 150) Cholesterol Level 106 mg/dL (< 200) LDL Cholesterol 53 mg/dL (< 100) HDL Cholesterol 37 mg/dL (40-59) Thyroid Stimulating Hormone (TSH) 1.65 uIU/mL (0.55-4.78) Influenza Type A Antigen Negative (Negative) Influenza Type B Antigen Negative (Negative) SARS-CoV-2 Antigen (Rapid) Negative (NEGATIVE) Other Laboratory Tests 08/08/25 07:46 Brief Hx & Hospital Course: Final diagnoses: UTI Right ureteral stone with hydronephrosis Hypertension History of CVA Type 2 diabetes MIGUEL Mixed hyperlipidemia 80-year-old male came with right flank pain and UTI and he was found to have an 8 mm stone with hydronephrosis and therefore Urology recommended a stent placement He was given IV antibiotics and IV fluids He has acute kidney injury improved with hydration Overnight he is asymptomatic now and he therefore he will be discharged home He will need to follow up with Dr. Miner as an outpatient to have a cystoscopy and lithotripsy He will be discharged on Cipro for 7 days Condition at Discharge: Stable Final Diagnosis/Problems List UTI Right ureteral stone with hydronephrosis Hypertension History of CVA Type 2 diabetes MIGUEL Mixed hyperlipidemia Discharge Disposition: Home SNF Discharge Will this Physician continue t: No Discharge Instruct/Medications Diet: Consistent carbohydrate, Cardiac 2g Na,low cholest Activity: No Restrictions, As Tolerated Follow Up/Referral: Dr. Miner [facility] Medications: Cipro 250 mg twice a day for 7 days Scheduled Amlodipine Besylate (Norvasc Tablet), 1 TAB PO DAILY, (Reported) Aspirin (Aspir-Low), 81 MG PO DAILY, (Reported) Atorvastatin Calcium (Atorvastatin Calcium), 20 MG PO HS, (Reported) Ciprofloxacin Hcl (Cipro), 250 MG PO BID Finasteride (Finasteride), 5 MG PO DAILY, (Reported) Fluoxetine Hcl (Fluoxetine Hcl), 40 MG PO DAILY, (Reported) Glipizide (Glipizide), 1 TAB PO BID, (Reported) Lisinopril (Lisinopril), 1 TAB PO DAILY, (Reported) Metformin Hydrochloride (Metformin Hcl), 1 TAB PO BID, (Reported) Tamsulosin Hcl (Tamsulosin Hcl), 1 CAP PO DAILY, (Reported) Trazodone HCl (Trazodone Hydrochloride), 50 MG PO HS, (Reported) Discharge Statement: "Patient was advised to return to the ER or call 911 if any headaches, dizziness, shortness of breath, chest pain, abdominal pain, bleeding, fevers, or worsening of medical condition. Patient was counseled about treatment plan, medications, possible side effects, patientverbalized understanding. All questions were answered to the best of my ability. This discharge took greater then 30 minutes in planning, reviewing documentation, counseling the patient, and discussing with other team members." ASSESSMENT ASSESSMENT Assessment UTI Right ureteral stone with hydronephrosis Hypertension History of CVA Type 2 diabetes MIGUEL Mixed hyperlipidemia Date of Service: Aug 08, 2025 Billing Provider: JENNIFER LOZANO MD Common Visit Codes: NOT BILLABLE JENNIFER LOZANO MD Aug 08, 2025 14:02
== END 2025-08-08 15:56 | disposition home or self-care (01) | DRG 660 ==
LOC: ER 10:18 → OVERFLOW 14:30 → CENTRAL 16:40
PROVIDERS: ADMIT Internal Medicine; ATTEND Internal Medicine
PROC: BT1D1ZZ Fluoroscopy of Right Kidney, Ureter and Bladder using Low Osmolar Contrast (ICD-10-PCS; 2025-08-07)
PROC: 0T768DZ Dilation of Right Ureter with Intraluminal Device, Via Natural or Artificial Opening Endoscopic (ICD-10-PCS; principal; 2025-08-07 10:27)
DX: N13.6 Pyonephrosis (principal); I16.9 Hypertensive crisis, unspecified; N17.9 Acute kidney failure, unspecified; F32.A Depression, unspecified; I10 Essential (primary) hypertension; E11.9 Type 2 diabetes mellitus without complications; E78.2 Mixed hyperlipidemia; N40.0 Benign prostatic hyperplasia without lower urinary tract symptoms; Z20.822 Contact with and (suspected) exposure to COVID-19; F17.210 Nicotine dependence, cigarettes, uncomplicated; Z86.73 Personal history of transient ischemic attack (TIA), and cerebral infarction without residual deficits; Z79.899 Other long term (current) drug therapy; Z87.442 Personal history of urinary calculi; Z95.0 Presence of cardiac pacemaker; Z79.84 Long term (current) use of oral hypoglycemic drugs
CPT/HCPCS: 36415; 71045; 74018; 74176; 76000; 80048; 80053; 80061; 80076; 81001; 82962; 83036; 83735; 83880; 84443; 85025; 85610; 85730; 87086; 87426; 87804; 93005; 96360; G0378; J0131; J1815; J2250; J2405; J2704